=== PATIENT | female | born 1940 | race Caucasian/White ===

== ENCOUNTER → 2021-01-10 12:57 | Outpatient (CLI) | payer OTHER | END | disposition home or self-care (01) | LOC: LAB 12:57 | PROVIDERS: ATTEND Orthopaedic Surgery | DX: E21.3 Hyperparathyroidism, unspecified (principal); E88.9 Metabolic disorder, unspecified; M81.8 Other osteoporosis without current pathological fracture; E56.1 Deficiency of vitamin K; E83.42 Hypomagnesemia; M85.9 Disorder of bone density and structure, unspecified ==

== ENCOUNTER → 2021-01-10 | Outpatient (CLI) | payer OTHER ==
[~2021-01-10] MED LIST: CATAFLAM50 MG PO
== END | disposition home or self-care (01) ==
LOC: RAD 11:02
PROVIDERS: ATTEND Orthopaedic Surgery
DX: M81.8 Other osteoporosis without current pathological fracture (principal); E55.9 Vitamin D deficiency, unspecified; M85.9 Disorder of bone density and structure, unspecified; E21.3 Hyperparathyroidism, unspecified; E56.1 Deficiency of vitamin K; E88.89 Other specified metabolic disorders

== ENCOUNTER 2021-06-30 10:42 | Outpatient (CLI) | payer OTHER | END 2021-06-30 10:45 | disposition home or self-care (01) | LOC: RAD 10:42 | PROVIDERS: ATTEND Orthopaedic Surgery | DX: M77.32 Calcaneal spur, left foot (principal); M77.31 Calcaneal spur, right foot; M20.12 Hallux valgus (acquired), left foot; M20.11 Hallux valgus (acquired), right foot ==